=== PATIENT | male | born 1945 | race Caucasian/White ===

== ENCOUNTER 2017-09-09 17:25 | Inpatient (IN) ==
[2017-09-09] MEDS ORDERED: Isovue-370 500 ML INFUS..BTL IV ONE (17:46)
[2017-09-09] MEDS ORDERED: *HR* LORazepam 2 MG/ML VIAL IVP ONE (17:46)
[2017-09-09] MEDS ORDERED: *HR* FentaNYL (PF) 100 MCG/2 ML VIAL IVP ONE (17:46)
[2017-09-09] MEDS ORDERED: 0.9 % Sodium Chloride 500 ML IVC ONE (17:47)
--- NOTE | 2017-09-09 17:50 | Emergency Department Note ---
Disposition Clinical Impression: KRISTIN (acute kidney injury), Elevated troponin I measurement Back pain Qualifiers: Chronicity: unspecified Back pain laterality: unspecified Disposition: Admitted As Inpatient Condition: Good [facility]: [facility]Primary Care Provider[facility] - Forms: ED Satisfaction Letter, Work/School Release General Adult HPI - General Chief complaint: ED General Medical Stated complaint: Lower back Pain Time Seen by Provider: 09/09/17 17:28 Limitations: no limitations Nursing Notes Reviewed: Yes Vital Signs Reviewed: Yes - History of Present Illness HPI Narrative: 72-year-old male with a past medical history of CABG with this procedure being in 2016. He also has diabetes, hypertension and prostate cancer. His cancer doctor is in [place]. He just finished his last dose of radiation today. He has had back pain for one week and got substantially worse today. It has been bilateral in the flank. He has had kidney stones in the past and wonders if this is caused by that. Due to his pain the cancer doctor sent him to the [facility] at urgent care who did some lab work and found an elevated troponin. Due to this they sent him to our emergency department. In further history he does admit to a history of an abdominal aortic aneurysm. While at the [facility] he was noted to have a blood pressure of 99/65 with a pulse of 61. He received 1 L of normal saline and his blood pressure was normal on arrival to our emergency department. He states that he does not have any pain in his back while laying there unless he tries to move. He is not having any decreased strength or sensation in his lower extremities. No difficulty with urination or bowel movements. Radiation: non-radiation Pain Severity: severe Consistency: intermittent Improves with: nothing Worsens with: movement Associated symptoms: Reports: denies other symptoms Treatments Prior to Arrival: none - Related Data Home Medications Medication Instructions Recorded Confirmed Aspirin Enteric Coated [Aspirin EC] 81 mg PO DAILY 09/09/17 09/09/17 Atorvastatin [Lipitor] 40 mg PO HS 09/09/17 09/09/17 Ciprofloxacin HCl [Cipro] 500 mg PO BID 09/09/17 09/09/17 Empagliflozin [Jardiance] 10 mg PO DAILY 09/09/17 09/09/17 Lisinopril [Zestril] 10 mg PO DAILY 09/09/17 09/09/17 Metformin HCl [Glucophage] 1,000 mg PO BID 09/09/17 09/09/17 Metoprolol [Lopressor] 12.5 mg PO BID 09/09/17 09/09/17 glipiZIDE [Glucotrol] 2.5 mg PO DAILY 09/09/17 09/09/17 Allergies Allergy/AdvReac Type Severity Reaction Status Date / Time Penicillins [PCN] AdvReac Anaphylaxis Verified 09/09/17 19:17 All systems ED: reviewed and negative except as stated. Constitutional: Denies: fever Eyes: Denies: vision change ENT ED: Denies: throat pain Cardiovascular: Denies: chest pain, dyspnea on exertion Respiratory: Denies: cough Gastrointestinal: Denies: abdominal pain, nausea, vomiting, diarrhea Musculoskeletal: Reports: back pain Integumentary: Denies: rash Physical Exam - General Limitations: no limitations General appearance: alert, in no apparent distress - Head Head exam: atraumatic - Eye Eye exam: Present: normal appearance - ENT ENT exam: normal exam - Neck Neck exam: Present: normal inspection - Chest Chest inspection: Present: normal inspection - Respiratory Respiratory exam: Present: normal lung sounds bilaterally. Absent: respiratory distress - Cardiovascular Cardiovascular exam: Present: regular rate, normal rhythm - Abdominal Exam Abdominal exam: Present: soft, Non-Tender - Extremities Exam Extremities exam: Present: normal inspection - Back Exam Back exam: Present: normal inspection, tenderness - Neurological Exam Neurological exam: Present: alert, oriented X3. Absent: motor sensory deficit - Skin Skin exam: Present: warm, dry Course Course Narrative: CTA does not demonstrate an acute abnormality. Troponin is negative. EKG does not demonstrate ST deviation. His lipase is just minimally elevated. I will admit him for serial troponins as he did have an elevated troponin at the outside facility. He had substantial improvement in his pain after symptomatically medications. He does not have any symptoms of cauda equina syndrome Vital Signs Temperature 97.5 F L 09/09/17 17:35 Pulse Rate 63 09/09/17 17:35 Respiratory Rate 18 09/09/17 17:35 Blood Pressure 127/73 09/09/17 17:35 O2 Sat by Pulse Oximetry 100 09/09/17 17:35 Temperature 97.5 F L 09/09/17 17:35 Pulse Rate 64 09/09/17 18:43 Respiratory Rate 14 09/09/17 18:43 Blood Pressure 128/71 09/09/17 18:43 O2 Sat by Pulse Oximetry 98 09/09/17 18:43 Oxygen Delivery Oxygen Delivery Room Air Medical Decision Making - Medical Records Medical records reviewed: Yes I reviewed the patient's medical records. - Lab Data Lab results reviewed: Yes I reviewed the patient's lab results. Result diagrams: 09/09/17 17:55 09/09/17 17:55 Lab Results 09/09/17 09/09/17 09/09/17 Range/Units 17:55 17:55 17:55 WBC 4.4 (4.3-11.1) K/mcL RBC 3.71 L (4.19-5.50) M/mcL Hgb 12.1 L (12.9-16.9) g/dL Hct 34.8 L (37.5-50.1) % MCV 93.8 (83.0-100.0) fL MCH 32.6 (28.0-33.3) pg MCHC 34.8 (31.6-35.5) g/dL RDW 13.5 (11.5-14.5) % Plt Count 144 (140-400) K/mcL MPV 11.0 (9.4-12.4) fL Immature Gran % 1.1 (0-4) % Seg Neutrophils % 73.6 % Lymphocytes % 12.6 % Monocytes % 7.7 % Eosinophils % 4.1 % Basophils % 0.9 % Neutrophils # 3.3 (1.6-8.9) K/mcL Lymphocytes # 0.6 (0.6-4.6) K/mcL Monocytes # 0.3 (0.0-1.3) K/mcL Eosinophils # 0.2 (0.0-0.6) K/mcL Basophils # 0.0 (0.0-0.2) K/mcL PT 11.1 (9.4-12.1) Seconds INR 1.0 Sodium 138 (136-145) mEq/L Potassium 4.9 (3.5-5.1) mEq/L Chloride 109 H (98-107) mEq/L Carbon Dioxide 21 L (23-29) mEq/L BUN 33 H (8-23) mg/dL Creatinine 1.45 H (0.70-1.30) mg/dL Est GFR ( Amer) 58 L (> 60) Est GFR (Non-Af Amer) 48 L (> 60) BUN/Creatinine Ratio 23 (6-26) Glucose 92 (70-105) mg/dL Calculated Osmolality 293 (280-300) Calcium 9.4 (8.6-10.3) mg/dL Total Bilirubin 0.6 (0.3-1.0) mg/dL Direct Bilirubin 0.2 (0.0-0.2) mg/dL Indirect Bilirubin 0.4 (0.0-1.2) mg/dL AST 13 (13-39) Units/L ALT 12 (7-52) Units/L Alkaline Phosphatase 52 (34-104) Units/L Troponin I < 0.03 (< 0.04) ng/mL Serum Total Protein 6.4 (6.4-8.9) g/dL Albumin 4.1 (3.5-5.7) g/dL Globulin 2.3 L (2.4-3.5) g/dL Albumin/Globulin Ratio 1.8 (1.1-2.2) Lipase 103 H (11-82) Units/L - Radiology Data Radiology results reviewed: Yes I reviewed the patient's radiology results. - EKG Data EKG #1 EKG attestation: Yes I reviewed and interpreted this EKG. EKG shows normal: sinus rhythm Rate: normal Rhythm: NSR Interpretation: no acute changes
[2017-09-09 18:11] LABS: Basophils % 0.9 %; Eosinophils # 0.2 K/mcL (0.0-0.6); Eosinophils % 4.1 %; Hematocrit 34.8 % (37.5-50.1); Hemoglobin 12.1 g/dL (12.9-16.9); Immature Granulocytes % 1.1 % (0-4); Lymphocytes # 0.6 K/mcL (0.6-4.6); Lymphocytes % 12.6 %; Mean Corpuscular HGB Conc 34.8 g/dL (31.6-35.5); Mean Corpuscular Hemoglobin 32.6 pg (28.0-33.3); Mean Corpuscular Volume 93.8 fL (83.0-100.0); Monocytes # 0.3 K/mcL (0.0-1.3); Monocytes % 7.7 %; Neutrophils # 3.3 K/mcL (1.6-8.9); Platelet Count 144 K/mcL (140-400); Red Blood Count 3.71 M/mcL (4.19-5.50); Red Cell Distribution Width 13.5 % (11.5-14.5); Segmented Neutrophils % 73.6 %
[2017-09-09 18:20] LABS: Prothrombin Time 11.1 Seconds (9.4-12.1)
[2017-09-09 18:38] LABS: Troponin I < 0.03 ng/mL (< 0.04)
[2017-09-09 18:40] LABS: Alanine Aminotransferase 12 Units/L (7-52); Albumin 4.1 g/dL (3.5-5.7); Albumin/Globulin Ratio 1.8 (1.1-2.2); Alkaline Phosphatase 52 Units/L (34-104); Aspartate Amino Transferase 13 Units/L (13-39); BUN/Creatinine Ratio 23 (6-26); Bilirubin,Direct 0.2 mg/dL (0.0-0.2); Bilirubin,Indirect 0.4 mg/dL (0.0-1.2); Bilirubin,Total 0.6 mg/dL (0.3-1.0); Blood Urea Nitrogen 33 mg/dL (8-23); Calcium 9.4 mg/dL (8.6-10.3); Carbon Dioxide 21 mEq/L (23-29); Chloride 109 mEq/L (98-107); Globulin 2.3 g/dL (2.4-3.5); Glucose 92 mg/dL (70-105); Lipase 103 Units/L (11-82); Osmolality,Calculated 293 (280-300); Potassium 4.9 mEq/L (3.5-5.1); Sodium 138 mEq/L (136-145); Total Protein 6.4 g/dL (6.4-8.9); eGFR For African Americans 58 (> 60); eGFR For Non-African Americans 48 (> 60)
--- NOTE | 2017-09-09 19:29 | Emergency Department Note ---
Disposition Clinical Impression: KRISTIN (acute kidney injury) Disposition: Admitted As Inpatient Condition: Good Forms: ED Satisfaction Letter, Work/School Release Time of Disposition: 19:29 General Adult HPI - General Chief complaint: ED General Medical Stated complaint: Lower back Pain Time Seen by Provider: 09/09/17 17:28 Source: patient, family, EMS Limitations: no limitations - History of Present Illness Pain Scale: 0 Improves with: nothing Worsens with: movement Associated symptoms: Reports: denies other symptoms Treatments Prior to Arrival: none - Related Data Home Medications Medication Instructions Recorded Confirmed Aspirin Enteric Coated [Aspirin EC] 81 mg PO DAILY 09/09/17 09/09/17 Atorvastatin [Lipitor] 40 mg PO HS 09/09/17 09/09/17 Ciprofloxacin HCl [Cipro] 500 mg PO BID 09/09/17 09/09/17 Empagliflozin [Jardiance] 10 mg PO DAILY 09/09/17 09/09/17 Lisinopril [Zestril] 10 mg PO DAILY 09/09/17 09/09/17 Metformin HCl [Glucophage] 1,000 mg PO BID 09/09/17 09/09/17 Metoprolol [Lopressor] 12.5 mg PO BID 09/09/17 09/09/17 glipiZIDE [Glucotrol] 2.5 mg PO DAILY 09/09/17 09/09/17 Allergies Allergy/AdvReac Type Severity Reaction Status Date / Time Penicillins [PCN] AdvReac Anaphylaxis Verified 09/09/17 19:17 Constitutional: Denies: fever Eyes: Denies: vision change ENT ED: Denies: throat pain Cardiovascular: Denies: chest pain, dyspnea on exertion Respiratory: Denies: cough Gastrointestinal: Denies: abdominal pain, nausea, vomiting, diarrhea Musculoskeletal: Reports: back pain Integumentary: Denies: rash Past Medical History - Past Medical History Medical history: Reports: diabetes, myocardial infarction, renal disease Psychiatric history: Reports: no psych history - Social History Smoking Status: Former smoker Smokeless Tobacco Status: No Alcohol use: Reports: none Drug use: Reports: none Physical Exam - General Limitations: no limitations General appearance: alert, in no apparent distress Course Vital Signs Temperature 97.5 F L 09/09/17 17:35 Pulse Rate 63 09/09/17 17:35 Respiratory Rate 18 09/09/17 17:35 Blood Pressure 127/73 09/09/17 17:35 O2 Sat by Pulse Oximetry 100 09/09/17 17:35 Temperature 97.5 F L 09/09/17 17:35 Pulse Rate 64 09/09/17 18:43 Respiratory Rate 14 09/09/17 18:43 Blood Pressure 128/71 09/09/17 18:43 O2 Sat by Pulse Oximetry 98 09/09/17 18:43 Oxygen Delivery Oxygen Delivery Room Air Medical Decision Making - Lab Data Result diagrams: 09/09/17 17:55 09/09/17 17:55 Lab Results 09/09/17 09/09/17 09/09/17 Range/Units 17:55 17:55 17:55 WBC 4.4 (4.3-11.1) K/mcL RBC 3.71 L (4.19-5.50) M/mcL Hgb 12.1 L (12.9-16.9) g/dL Hct 34.8 L (37.5-50.1) % MCV 93.8 (83.0-100.0) fL MCH 32.6 (28.0-33.3) pg MCHC 34.8 (31.6-35.5) g/dL RDW 13.5 (11.5-14.5) % Plt Count 144 (140-400) K/mcL MPV 11.0 (9.4-12.4) fL Immature Gran % 1.1 (0-4) % Seg Neutrophils % 73.6 % Lymphocytes % 12.6 % Monocytes % 7.7 % Eosinophils % 4.1 % Basophils % 0.9 % Neutrophils # 3.3 (1.6-8.9) K/mcL Lymphocytes # 0.6 (0.6-4.6) K/mcL Monocytes # 0.3 (0.0-1.3) K/mcL Eosinophils # 0.2 (0.0-0.6) K/mcL Basophils # 0.0 (0.0-0.2) K/mcL PT 11.1 (9.4-12.1) Seconds INR 1.0 Sodium 138 (136-145) mEq/L Potassium 4.9 (3.5-5.1) mEq/L Chloride 109 H (98-107) mEq/L Carbon Dioxide 21 L (23-29) mEq/L BUN 33 H (8-23) mg/dL Creatinine 1.45 H (0.70-1.30) mg/dL Est GFR ( Amer) 58 L (> 60) Est GFR (Non-Af Amer) 48 L (> 60) BUN/Creatinine Ratio 23 (6-26) Glucose 92 (70-105) mg/dL Calculated Osmolality 293 (280-300) Calcium 9.4 (8.6-10.3) mg/dL Total Bilirubin 0.6 (0.3-1.0) mg/dL Direct Bilirubin 0.2 (0.0-0.2) mg/dL Indirect Bilirubin 0.4 (0.0-1.2) mg/dL AST 13 (13-39) Units/L ALT 12 (7-52) Units/L Alkaline Phosphatase 52 (34-104) Units/L Troponin I < 0.03 (< 0.04) ng/mL Serum Total Protein 6.4 (6.4-8.9) g/dL Albumin 4.1 (3.5-5.7) g/dL Globulin 2.3 L (2.4-3.5) g/dL Albumin/Globulin Ratio 1.8 (1.1-2.2) Lipase 103 H (11-82) Units/L Attestation Statement - Attestation Attestation: I examined this patient and my medical decision-making was reviewed with the Resident Physician. I agree with the documented findings, disposition and treatment plan as described except to the extent set forth below. 72 year old male presents to the ED from the [facility] for abodminal pain, elevated troponin, lipase, and bilateral flank pain with hypotension. CTA chest and abdomen have ruled out aortic dissection secondar to history of abdomnial anuerysms. PAtient also has a history fo 5-vessel CABG. His troponin of us is negative, and CTA is negative for aortic dissection but does show renal atrophy with bialeral renal arter calcifications. PAtinet also has a lipase of 100. WE will admit to medicine for KRISTIN and serial ttroponins
[2017-09-09] MEDS ORDERED: Naloxone 0.4 MG/ML INJ IVP PRN (21:25)
[2017-09-09] MEDS ORDERED: traMADol 50 MG TABLET PO PRN (21:25)
[2017-09-09] MEDS ORDERED: Acetaminophen 325 MG TABLET PO PRN (21:25)
[2017-09-09] MEDS ORDERED: *HR* Dextrose 50 % in Water (Syg) 50 ML SYRINGE IVP PRN (21:28)
[2017-09-09] MEDS ORDERED: D5% in Water 1,000 ML IVC PRN (21:28)
[2017-09-09] MEDS ORDERED: Dextrose Gel 15 GM/37.5 ML TUBE PO PRN ×2 (21:28)
[2017-09-09 21:30] LABS: Bilirubin,Urine Negative (Negative); Blood,Urine Negative (Negative); Clarity,Urine Clear (Clear); Color,Urine Yellow (Yellow); Glucose,Urine (UA) >=1000 mg/dL (Normal); Ketones,Urine Trace mg/dL (Negative); Leukocyte Esterase,Urine Negative (Negative); Nitrite,Urine Negative (Negative); PH,Urine 5.5 pH Units (5.0-8.0); Protein,Urine Negative (Neg-Trace); Specific Gravity,Urine > 1.030 (1.010-1.025); Urobilinogen,Urine Normal (Normal)
--- NOTE | 2017-09-09 22:05 | Internal Med History&Physical ---
Date of Encounter: 09/09/17 Time of Encounter: 20:00 Internal Medicine - H&P: HPI Chief complaint: Bilateral low back pain Admitted From: Home Plans for Post Hospital Care: Home History of present illness: Mr. Lindsey is a 72 year old male presented to [facility] ER for bilateral low back pain. Patient was transferred from [facility] to our hospital for abnormal troponin and lipase. Past medical history is significant for diabetes, CAD S/P CABG and AICD, prostate cancer S/P radiation therapy. Patient has a recent diagnosed prostate cancer on radiation therapy in last 45 days. Patient starts to have bilateral low back pain since about 5 weeks ago, the pain is located on bilateral low back area, left is more than right. Patient cannot lay flat without pain medications. Patient denies bilateral leg numbness/tingling/weakness. Patient can walk well. Patient denies urinary or fecal incontinence. Patient denies shortness of breath, chest pain, or abdominal pain. He denies nausea or vomiting. Patient warned about kidney stone and went to [facility] for examination. In the [facility], he was incidentally found elevated troponin to 0.054 and elevated lipase to 808. Patient was transferred to our hospital for further management. Past Med Surg Social Fam HX - Past Medical History Medical history: diabetes, myocardial infarction, renal disease Psychiatric history: no psych history - Social History Smoking Status: Former smoker Smokeless Tobacco Status: No Alcohol use: none Drug use: none - Family History Mother History Unknown: Yes Internal Medicine - H&P: Meds Aspirin Enteric Coated [Aspirin EC] 81 mg PO DAILY 09/09/17 [History] Atorvastatin [Lipitor] 40 mg PO HS 09/09/17 [History] Ciprofloxacin HCl [Cipro] 500 mg PO BID 09/09/17 [History] Empagliflozin [Jardiance] 10 mg PO DAILY 09/09/17 [History] Lisinopril [Zestril] 10 mg PO DAILY 09/09/17 [History] Metformin HCl [Glucophage] 1,000 mg PO BID 09/09/17 [History] Metoprolol [Lopressor] 12.5 mg PO BID 09/09/17 [History] glipiZIDE [Glucotrol] 2.5 mg PO DAILY 09/09/17 [History] 3 Allergy/AdvReac Type Severity Reaction Status Date / Time Penicillins [PCN] AdvReac Anaphylaxis Verified 09/09/17 19:17 All Systems PM: A 10-system review of systems was performed and is negative for pertinent findings except as documented above in the HPI. - Constitutional Vitals: Temp Pulse Resp BP Pulse Ox 97.5 F L 73 18 150/96 99 09/09/17 17:35 09/09/17 21:50 09/09/17 21:50 09/09/17 21:50 09/09/17 21:50 General appearance: Present: A&O X 3, no acute distress, answers questions appropriately - Head Head exam: Present: atraumatic, normocephalic - Eye Eye exam: Present: PERRL, conjuntiva pink, sclera anicteric Pupils: Present: PERRL - Neck Neck exam general surgery: Present: supple, trachea midline. Absent: lymphadenopathy - Respiratory Respiratory exam: Present: CTAB. Absent: accessory muscle use, rales, rhonchi, wheezes - Cardiovascular Cardiovascular exam: Present: RRR, +S1, +S2. Absent: diastolic murmur, gallop, rubs, systolic murmur - GI/Abdominal GI/Abdominal exam: Present: normal bowel sounds, soft, no peritoneal signs. Absent: distended, tenderness - Extremities Exam Extremities exam: Present: warm, radial pulses palpable and symmetrical. Absent : calf tenderness, cyanotic, pedal edema - Neurological Exam Neurological exam: Present: CN II-XII intact, oriented X3, no focal deficits. Absent: pronater drift, facial droop, speech deficit - Skin Skin exam: Present: dry, intact Internal Med - H&P Results - Labs CBC & Chem 7: 09/09/17 17:55 09/09/17 17:55 Labs: Short CBC 09/09/17 Range/Units 17:55 WBC 4.4 (4.3-11.1) K/mcL Hgb 12.1 L (12.9-16.9) g/dL Hct 34.8 L (37.5-50.1) % Plt Count 144 (140-400) K/mcL Neutrophils # 3.3 (1.6-8.9) K/mcL BMP 09/09/17 17:55 Sodium 138 Potassium 4.9 Chloride 109 H Carbon Dioxide 21 L BUN 33 H Creatinine 1.45 H Glucose 92 Calcium 9.4 Cardiac Enzymes 09/09/17 Range/Units 17:55 Troponin I < 0.03 (< 0.04) ng/mL Liver Function 09/09/17 Range/Units 17:55 Total Bilirubin 0.6 (0.3-1.0) mg/dL Direct Bilirubin 0.2 (0.0-0.2) mg/dL AST 13 (13-39) Units/L ALT 12 (7-52) Units/L Alkaline Phosphatase 52 (34-104) Units/L Albumin 4.1 (3.5-5.7) g/dL Urine 09/09/17 Range/Units 21:16 Urine Color Yellow (Yellow) Urine Clarity Clear (Clear) Urine pH 5.5 (5.0-8.0) pH Units Ur Specific Lindsay > 1.030 H (1.010-1.025) Urine Protein Negative (Neg-Trace) mg/dL Urine Glucose (UA) >=1000 H (Normal) mg/dL - Impressions ITS Impressions Abdomen/Pelvis CTA 09/09/17 17:46 IMPRESSION: 1. Negative evaluation for aortic dissection. Ectasia of the infrarenal abdominal aorta just prior to the iliac bifurcation measuring about 27 mm. 2. Stenosis of the bilateral renal arteries with luminal narrowing of approximately 2 mm on the left. Calcification and narrowing of the right kidney with luminal caliber approximately 2.4 mm. There is associated bilateral renal atrophy. 3. Mild prostatomegaly with urinary bladder wall thickening. Correlate for symptoms of outlet obstruction. RECOMMENDATIONS: Managing Abdominal Aortic Aneurysms 2.6-2.9 cm: Every 5 years* *For abdominal aortas with maximum diameter of 2.6-2.9 cm meeting criteria for AAA (>50% of proximal normal segment). Reference: J Vasc Surg. 2008;50(4 Suppl):S2-49 D/ / 09/09/2017 19:16:51 Christofer Myles / aamir Interpreting Provider: Christofer Myles Chest CTA 09/09/17 17:46 IMPRESSION: 1. Negative evaluation for aortic dissection. Ectasia of the infrarenal abdominal aorta just prior to the iliac bifurcation measuring about 27 mm. 2. Stenosis of the bilateral renal arteries with luminal narrowing of approximately 2 mm on the left. Calcification and narrowing of the right kidney with luminal caliber approximately 2.4 mm. There is associated bilateral renal atrophy. 3. Mild prostatomegaly with urinary bladder wall thickening. Correlate for symptoms of outlet obstruction. RECOMMENDATIONS: Managing Abdominal Aortic Aneurysms 2.6-2.9 cm: Every 5 years* *For abdominal aortas with maximum diameter of 2.6-2.9 cm meeting criteria for AAA (>50% of proximal normal segment). Reference: J Vasc Surg. 2008;50(4 Suppl):S2-49 D/ / 09/09/2017 19:16:51 Christofer Myles / aamir Interpreting Provider: Christofer Myles - Assessment and plan (1) Acute renal failure Current Visit: Yes Status: Acute Assessment and plan: Patient has mild elevated creatinine from baseline (1.45). Etiology is undetermined. Patient took Aleve recently for back pain. Patient had CTA today. Patient has a prostate cancer which may cause obstructive uropathy. - We will place patient on low rate IV fluid. - Avoid nephrotoxic medications, especially NSAID at this point - Closely monitor urinary output. - Closely follow up renal function. Qualifiers: Acute renal failure type: unspecified Qualified Code(s): N17.9 - Acute kidney failure, unspecified (2) Elevated lipase Current Visit: Yes Status: Acute Assessment and plan: Etiology is undetermined. Patient denies right/left upper quadrant pain, no nausea, no vomiting. CT abdomen shows no signs of pancreatitis. Repeated lipase in our hospital shows 105. - Most likely nonspecific - We will repeat lipase in a.m., closely monitor patient (3) CAD (coronary artery disease) Current Visit: Yes Status: Acute Assessment and plan: Denies chest pain. Unremarkable EKG. Continue home medications Qualifiers: Coronary Disease-Associated Artery/Lesion type: bypass graft [place] vs. transplanted heart: [place] heart Associated angina: without angina Qualified Code(s): I25.810 - Atherosclerosis of coronary artery bypass graft(s) without angina pectoris (4) Prostate cancer Current Visit: Yes Status: Acute Assessment and plan: Finished radiation therapy today. Continue follow-up as outpatient. (5) Diabetes mellitus Current Visit: Yes Status: Acute Assessment and plan: Covered patient with sliding scale insulin. Qualifiers: Diabetes mellitus type: type 2 Diabetes mellitus tank terminal gauger insulin use: without tank terminal gauger use Diabetes mellitus complication status: without complication Qualified Code(s): E11.9 - Type 2 diabetes mellitus without complications (6) Abdominal aortic aneurysm Current Visit: Yes Status: Acute Assessment and plan: Incidentally found by abdominal CT. 27mm in diameter. Continue close follow-up as outpatient per protocol. Qualifiers: Presence of rupture: without rupture Qualified Code(s): I71.4 - Abdominal aortic aneurysm, without rupture (7) DVT prophylaxis Current Visit: Yes Status: Acute Assessment and plan: Heparin subcutaneously (8) Back pain Current Visit: Yes Status: Acute Assessment and plan: Patient has bilateral low back pain, which started after radiation therapy. Abdominal CT shows no significant acute findings. - Suspect it is caused by inflammation which is up from recent radiation therapy. - Patient was recently prescribed Cipro for UTI by outpatient physician. Will continue. His urine analysis negative today. - Continue symptomatic treatment for pain. Qualifiers: Back pain location: low back pain Chronicity: chronic Back pain laterality: bilateral Sciatica presence: without sciatica Qualified Code(s) : M54.5 - Low back pain; G89.29 - Other chronic pain (9) Elevated troponin I measurement Current Visit: Yes Status: Acute Assessment and plan: Patient denies chest pain. EKG unremarkable. Less likely ACS. - Place patient on continuous cardiac monitoring. - Track 3 sets of troponin. - Time Spent With Patient Total time spent is greater than 50% in coordination of care (as documented) at patient's floor/unit and/or counseling patient: 40 minutes Greater than 35 minutes
[2017-09-10] MEDS: 0.9 % Sodium Chloride 1,000 ML IVC SCH ×2 (00:26→11:00)
[2017-09-10] MEDS: *HR* Heparin 5,000 UNIT/ML VIAL SQ SCH ×2 (05:58→18:07)
[2017-09-10 07:11] LABS: Basophils % 0.1 %; Hematocrit 36.8 % (37.5-50.1); Hemoglobin 12.5 g/dL (12.9-16.9); Immature Granulocytes % 0.4 % (0-4); Lymphocytes # 0.3 K/mcL (0.6-4.6); Lymphocytes % 4.8 %; Mean Corpuscular Hemoglobin 31.3 pg (28.0-33.3); Mean Corpuscular Volume 92.2 fL (83.0-100.0); Mean Platelet Volume 11.5 fL (9.4-12.4); Monocytes # 0.3 K/mcL (0.0-1.3); Neutrophils # 6.4 K/mcL (1.6-8.9); Platelet Count 153 K/mcL (140-400); Red Blood Count 3.99 M/mcL (4.19-5.50); Red Cell Distribution Width 13.3 % (11.5-14.5); Segmented Neutrophils % 90.7 %
[2017-09-10 07:36] LABS: BUN/Creatinine Ratio 25 (6-26); Blood Urea Nitrogen 34 mg/dL (8-23); Calcium 9.5 mg/dL (8.6-10.3); Carbon Dioxide 20 mEq/L (23-29); Chloride 109 mEq/L (98-107); Glucose 160 mg/dL (70-105); Magnesium 1.9 mg/dL (1.6-2.6); Osmolality,Calculated 301 (280-300); Potassium 5.3 mEq/L (3.5-5.1); Sodium 140 mEq/L (136-145); eGFR For African Americans > 60 (> 60); eGFR For Non-African Americans 52 (> 60)
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
[2017-09-10 07:59] LABS: Troponin I < 0.03 ng/mL (< 0.04)
[2017-09-10] MEDS: Insulin LISPRO 300 UNITS/3 ML VIAL SQ SCH ×3 (08:27→18:07)
[2017-09-10] MEDS ORDERED: Aspirin Enteric Coated 81 MG Tablet PO SCH (09:00)
[2017-09-10] MEDS ORDERED: *HR* Acetylcysteine 20% 600 MG/3 ML ORAL SYRINGE PO SCH (09:00)
[2017-09-10] MEDS ORDERED: predniSONE 20 MG TABLET PO SCH (12:15)
[2017-09-10 15:32] VITALS: BP 122/74
--- NOTE | 2017-09-10 19:17 | Discharge Summary ---
- NOTES TO OUTPATIENT PROVIDER Notes to Outpatient Provider: Please follow up with Spine surgery Dr. Wright or whoever your PCP recommends. Please take steroids Prednisone 40mg PO Daily x 5 days. f/u with PCP in one week Orders not resulted at time of discharge: Pending orders 09/11/17 04:00 Lipase AM 0400 Lipid Panel AM 0400 Date of Encounter: 09/10/17 Time of Encounter: 19:12 - Discharge Diagnosis (1) Back pain Priority: Primary Status: Acute Qualifiers: Back pain location: low back pain Chronicity: chronic Back pain laterality: bilateral Sciatica presence: without sciatica Qualified Code(s) : M54.5 - Low back pain; G89.29 - Other chronic pain (2) Acute pancreatitis Priority: Primary Status: Acute Qualifiers: Acute pancreatitis complication: unspecified Qualified Code(s): K85.90 - Acute pancreatitis without necrosis or infection, unspecified (3) Elevated troponin I measurement Priority: Secondary Status: Acute (4) Acute renal failure Priority: Secondary Status: Acute Qualifiers: Acute renal failure type: unspecified Qualified Code(s): N17.9 - Acute kidney failure, unspecified (5) CAD (coronary artery disease) Priority: Secondary Status: Acute Qualifiers: Coronary Disease-Associated Artery/Lesion type: bypass graft [place] vs. transplanted heart: [place] heart Associated angina: without angina Qualified Code(s): I25.810 - Atherosclerosis of coronary artery bypass graft(s) without angina pectoris (6) Prostate cancer Priority: Secondary Status: Acute (7) Diabetes mellitus Priority: Secondary Status: Acute Qualifiers: Diabetes mellitus type: type 2 Diabetes mellitus halfway insulin use: without watermelon inspector use Diabetes mellitus complication status: without complication Qualified Code(s): E11.9 - Type 2 diabetes mellitus without complications (8) Abdominal aortic aneurysm Priority: Secondary Status: Acute Qualifiers: Presence of rupture: without rupture Qualified Code(s): I71.4 - Abdominal aortic aneurysm, without rupture (9) DVT prophylaxis Priority: Secondary Status: Acute (10) Systolic CHF, chronic Priority: Secondary Status: Acute Hospital course: Mr. Lindsey is a 72 year old male presented to [place] ER for severe low back pain. Patient was transferred from [place] [facility] to our hospital for abnormal troponin and lipase. Past medical history is significant for diabetes, CAD S/P CABG and AICD, prostate cancer S/P radiation therapy. Patient has a recent diagnosed prostate cancer on radiation therapy in last 45 days. Patient starts to have bilateral low back pain since about 5 weeks ago, the pain is located on bilateral low back area, left is more than right. Patient cannot lay flat without pain medications. Patient denies bilateral leg numbness/tingling/ weakness. Patient denies urinary or fecal incontinence. Patient denies shortness of breath, chest pain, or abdominal pain. He denies nausea or vomiting. In the [place] [facility], he was incidentally found elevated troponin to 0.054 and elevated lipase to 808. Patient was transferred to our hospital for further management. Pt's troponin and lipase trended down to normal. Regarding his severe low back pain molina I obtained CT of lumbar spine ( unable to do MRI due to his Defibrillator ) which showed mild b/l formainal narrowing at L4-5, L5-S1. Mild multi level disc bulging. So started him on Prednisone 40mg PO Daily. Consulted spine surgery. Pt do not wanted to wait for specialist evaluation and PT / OT eval. He wanted to leave against medical advice. I explained to him the risks of it, he still decided to leave AMA. So I gave him rx for Prednisone and recommend to f/u with PCP and Spine surgeon. - Time Spent with Patient Total time spent providing and/or coordinating discharge services: - Discharge Medications Prescriptions: predniSONE [PredniSONE] 40 mg PO DAILY 5 Days tablet Home Medications: Aspirin Enteric Coated [Aspirin EC] 81 mg PO DAILY 09/09/17 [History] Atorvastatin [Lipitor] 40 mg PO HS 09/09/17 [History] Ciprofloxacin HCl [Cipro] 500 mg PO BID 09/09/17 [History] Empagliflozin [Jardiance] 10 mg PO DAILY 09/09/17 [History] Lisinopril [Zestril] 10 mg PO DAILY 09/09/17 [History] Metformin HCl [Glucophage] 1,000 mg PO BID 09/09/17 [History] Metoprolol [Lopressor] 12.5 mg PO BID 09/09/17 [History] glipiZIDE [Glucotrol] 2.5 mg PO DAILY 09/09/17 [History] predniSONE [PredniSONE] 40 mg PO DAILY 5 Days tablet 09/10/17 [Rx] Allergies/Adverse Reactions: 3 Allergy/AdvReac Type Severity Reaction Status Date / Time Penicillins [PCN] AdvReac Anaphylaxis Verified 09/09/17 19:17 Date of admission: 09/10/17 07:53 Primary care physician: PCP KAYLEE - Constitutional Vitals: Temp Pulse Resp BP Pulse Ox 97.8 F 72 17 122/74 90 09/10/17 15:30 09/10/17 15:30 09/10/17 15:30 09/10/17 15:30 09/10/17 15:30 General appearance: Present: A&O X 3, answers questions appropriately - Patient Status Disposition: Left Against Medical Advice Condition: Good Overall status at discharge: patient is back to baseline - Discharge Instructions Follow Up With: KAYLEE,PCP [Primary Care Provider] - Elio Wright Jr, MD [Partnered Physician] - - Diet and Activity Activity: increase activity as tolerated Diet: low salt diet
--- NOTE | 2017-09-10 20:29 | Electrocardiograph Report ---
[address] [address] Test Date: 2017-09-09 Pat Name: Kvng Lindsey Department: 104 Room: 3B13 Gender: M Food Stylist: NATHALIE : 1945 Requested By: Kelvin Shaw Order Number: [id number] Reading MD: Kvng Alexandre Measurements Intervals [place] Rate: 58 P: 20 PA: 252 QRS: -3 QRSD: 102 T: 125 QT: 415 QTc: 412 Interpretive Statements SINUS BRADYCARDIA WITH FIRST DEGREE AV BLOCK LOW QRS VOLTAGE IN PRECORDIAL LEADS Electronically Signed On 09-10-2017 20:27:52 EDT by Kvng Alexandre
[2017-09-10] MEDS ORDERED: Insulin LISPRO 300 UNITS/3 ML VIAL SQ SCH (21:00)
== END 2017-09-10 19:42 | disposition left against medical advice (07) | DRG 682 ==
LOC: ICNU 17:25 → EMEROO 17:25 → ICNU 23:59 → 3BNU 09-10 13:09
PROVIDERS: ADMIT Internal Medicine; ATTEND Internal Medicine